=== PATIENT | male | born 1970 | race Caucasian/White ===

== ENCOUNTER 2017-08-13 09:55 | Emergency (ER) | payer BC, OTHER ==
[~2017-08-13] VITALS: Ht 165.1 cm; Wt 103.3 kg
[~2017-08-13 09:55] MED LIST: ASPI81TA28 PO; EPP3 IM; LOSA50TA6 PO; PRLSR20 PO
[2017-08-13 10:05] VITALS: TEMP 36.9; Ht 165.1 cm; Wt 103.3 kg
[2017-08-13] MEDS ORDERED: SODIUM CHLORIDE 0.9% 500ML 500 ML IV STA (10:49)
[2017-08-13] MEDS ORDERED: EPP3/2 IM (10:55)
[2017-08-13] MEDS ORDERED: OMEP20TA40 PO (10:55)
[2017-08-13] MEDS ORDERED: MULT-506 PO (10:56)
[2017-08-13] MEDS ORDERED: POTA99TA PO (10:56)
[2017-08-13] MEDS ORDERED: KRIL1000 PO (10:56)
[2017-08-13] MEDS ORDERED: HYDR12.56 PO (10:57)
[2017-08-13] MEDS ORDERED: OPTIRAY 320 IV PRN (11:00)
--- NOTE | 2017-08-13 11:14 | DIAGNOSTIC IMAGING REPORT ---
CHEST ONE VIEW PORTABLE CLINICAL HISTORY: 47 years-old Male presenting with Chest Pain. TECHNIQUE: Portable upright AP view of the chest was obtained. COMPARISON: 01/18/2016. FINDINGS: Top normal cardiac size. No focal opacity. No large effusion or pneumothorax. Osseous structures normal. Upper abdomen normal. IMPRESSION: 1. No acute cardiopulmonary disease. Electronically signed by: Valerio Ceja M.D. 08/13/2017 11:13 AM Dictated Date/Time: 08/13/2017 11:12 AM
[2017-08-13 11:29] LABS: BASO % 0.1 %; BASO ABS # 0.01 K/uL (0-0.2); EOS ABS # 0.08 K/uL (0-0.5); HEMATOCRIT 41.5 % (42-52); HEMOGLOBIN 15.3 g/dL (14.0-18.0); IG# 0.01 K/uL (0.00-0.02); LYMPH % 20.3 %; LYMPH ABS # 1.61 K/uL (1.2-3.4); MEAN CELL VOLUME 89.6 fL (80-100); MEAN CORPUSCULAR HGB CONC 36.9 g/dl (32-36); MEAN PLATELET VOLUME 8.9 fL (7.4-10.4); MONO % 6.3 %; NEUT % 72.2 %; NEUT ABS # 5.72 K/uL (1.4-6.5); PLATELET COUNT 243 K/uL (130-400); RED CELL DISTRIBUTION WIDTH CV 12.5 % (11.5-14.5); RED CELL DISTRIBUTION WIDTH SD 40.6 fL (36.4-46.3); WHITE BLOOD COUNT 7.93 K/uL (4.8-10.8)
[2017-08-13 11:46] LABS: BLOOD UREA NITROGEN 14 mg/dl (7-18); CALCIUM 9.4 mg/dl (8.5-10.1); CARBON DIOXIDE 29 mmol/L (21-32); CREATININE 1.32 mg/dl (0.60-1.40); GLUCOSE 99 mg/dl (70-99); POTASSIUM 3.4 mmol/L (3.5-5.1); SODIUM 135 mmol/L (136-145)
--- NOTE | 2017-08-13 12:21 | DIAGNOSTIC IMAGING REPORT ---
CT SCAN OF THE BRAIN WITHOUT IV CONTRAST CLINICAL HISTORY: Left arm numbness. COMPARISON STUDY: No priors. TECHNIQUE: Unenhanced axial CT scan of the brain is performed from the vertex to the skull base. A dose lowering technique was utilized adhering to the principles of ALARA. FINDINGS: Brain parenchyma: The brain parenchyma is normal in appearance. There is no hemorrhage, mass effect, or evidence of acute territorial ischemia by CT criteria. Ramesh-white matter is preserved. No extra-axial fluid collection is seen. Ventricles, sulci, cisterns: Normal in configuration. Intracranial vasculature: There is atherosclerotic calcification of the cavernous carotid arteries. Calvarium: Unremarkable. Sinuses and mastoids: The visualized paranasal sinuses are clear. The mastoid air cells are well pneumatized. Orbits: The bony orbits are grossly intact. IMPRESSION: No acute intracranial abnormality. Electronically signed by: George Flood M.D. 08/13/2017 12:20 PM Dictated Date/Time: 08/13/2017 12:18 PM
--- NOTE | 2017-08-13 12:29 | DIAGNOSTIC IMAGING REPORT ---
CHEST CTA for AORTIC DISSECTION CT DOSE: 2033.83 mGy.cm HISTORY: Left arm numbness and pain. Short of breath. Evaluate for dissection. TECHNIQUE: Multiaxial CT images of the chest were performed both before and after the intravenous administration of contrast to evaluate the aorta. Maximal intensity projection images were also obtained. A dose lowering technique was utilized adhering to the principles of ALARA. COMPARISON STUDY: None. FINDINGS: Normal caliber thoracic aorta with no evidence for dissection. The main pulmonary arteries are patent. The heart is normal in size. No pleural or pericardial effusions. The visualized liver, spleen, and adrenal glands are unremarkable. No mediastinal or hilar lymphadenopathy. Normal esophagus. No fractures within the visualized osseous structures. No pneumothorax. The central airways are patent. The lungs are clear. IMPRESSION: No evidence for an aortic dissection. Electronically signed by: Subhash Collier M.D. 08/13/2017 12:28 PM Dictated Date/Time: 08/13/2017 12:19 PM
[2017-08-13] MEDS ORDERED: PRED50TA PO (14:01)
[2017-08-13 14:08] VITALS: BP 134/93; PULSE 88; O2SAT 96
--- NOTE | 2017-08-13 14:41 | EMERGENCY ROOM VISIT NOTE ---
History Report prepared by Magali: Andre Mckeon Under the Supervision of: Dr. Rolf Hoover D.O. First contact with patient: 10:36 Chief Complaint: NEURO SYMPTOMS Stated Complaint: LEFT ARM NUMBESS, SOB AND NAUSEA History of Present Illness The patient is a 47 year old male who presents to the Emergency Room with complaints of improving left arm numbness beginning this morning. 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 He states that his arm currently feels "tingly and cold". The patient states that numbness is worse on the back side of his arm, and is present along the entire arm. He states that the numbness extends into his left neck and left jaw. He also complains of fatigue, low abdominal pain (intermittent for a month), shortness of breath with his numbness, and low back pain (for a few weeks). The patient states that he has been having problems with his hands falling asleep as well as tingling to his feet for several weeks. He states that his hands will fall asleep while holding things. He is not a smoker. Pt denies weakness, headache, change in vision, fevers, chest pain, nausea, vomiting, diarrhea, pain with urination, and melena. He has seen his PCP for his symptoms a few weeks ago. Source of History: patient Onset: This morning Position: arm (left) Quality: numbness Timing: other (improving) Associated Symptoms: + SOB (along with numbness), + abdominal pain (low, for about a month), + back pain (for a few weeks), + fatigue, No fevers, No headache, No chest pain, No nausea, No vomiting, No melena, No diarrhea, No urinary symptoms, No weakness Review of Systems See HPI for pertinent positives & negatives. A total of 10 systems reviewed and were otherwise negative. Past Medical & Surgical Medical Problems: (1) Acid reflux (2) chest pain (3) Hypertension Family History Cancer Diabetes mellitus Gallbladder disease Heart disease Hypertension Social History Smoking Status: Never Smoker Alcohol Use: occasionally Drug Use: none Marital Status: Housing Status: lives with family Occupation Status: employed Current/Historical Medications Scheduled Aspirin (Aspirin Ec), 81 MG PO DAILY Epinephrine (Epipen), 0.3 MG IM UD Hydrochlorothiazide (Hctz), Unknown Dose PO DAILY Krill Oil (Krill Oil), 1 CAP PO DAILY Losartan Potassium (Cozaar), 50 MG PO DAILY Multivitamin (Multivitamin), 1 TAB PO DAILY Omeprazole (Cvs Omeprazole), 20 MG PO DAILY Potassium (Potassium), 99 MG PO DAILY Prednisone (Prednisone), 50 MG PO DAILY Allergies Coded Allergies: BEE STING (Unverified Allergy, Unknown, HIVES, 08/13/17) Physical Exam Vital Signs Date Time Temp Pulse Resp B/P (MAP) Pulse Ox O2 Delivery O2 Flow Rate FiO2 08/13/17 14:08 88 19 134/93 96 08/13/17 12:36 87 23 160/103 97 Room Air 08/13/17 12:01 83 08/13/17 11:21 87 13 132/101 96 Room Air 08/13/17 10:05 36.9 98 18 152/97 99 Room Air Physical Exam GENERAL: Sitting up in bed, alert, well appearing, well nourished, no distress, non-toxic EYE EXAM: normal conjunctiva. PERRL and EOM's intact. OROPHARYNX: no exudate, no erythema, lips, buccal mucosa, and tongue normal and mucous membranes are moist NECK: supple, no nuchal rigidity, no adenopathy, non-tender LUNGS: Clear to auscultation. Normal chest wall mechanics HEART: no murmurs, S1 normal and S2 normal ABDOMEN: abdomen soft, non-tender, normo-active bowel sounds, no masses, no rebound or guarding. BACK: Back is symmetrical on inspection and there is no deformity, no midline tenderness, no CVA tenderness. SKIN: no rashes and no bruising UPPER EXTREMITIES: upper extremities are grossly normal. LOWER EXTREMITIES: No pitting edema. NEURO EXAM: Normal sensorium, cranial nerves II-XII intact, normal speech, no weakness of arms, no weakness of legs. No drift. Finger to nose intact. Gross sensation intact. Spurling's test reproduces mild tingling in left elbow. Medical Decision & Procedures ER Provider Diagnostic Interpretation: Radiology results as stated below per my review and the radiologist's interpretation: CHEST ONE VIEW PORTABLE FINDINGS: Top normal cardiac size. No focal opacity. No large effusion or pneumothorax. Osseous structures normal. Upper abdomen normal. IMPRESSION: 1. No acute cardiopulmonary disease. Electronically signed by: Valerio Ceja M.D. 08/13/2017 11:[address] SCAN OF THE BRAIN WITHOUT IV CONTRAST FINDINGS: Brain parenchyma: The brain parenchyma is normal in appearance. There is no hemorrhage, mass effect, or evidence of acute territorial ischemia by CT criteria. Ramesh-white matter is preserved. No extra-axial fluid collection is seen. Ventricles, sulci, cisterns: Normal in configuration. Intracranial vasculature: There is atherosclerotic calcification of the cavernous carotid arteries. Calvarium: Unremarkable. Sinuses and mastoids: The visualized paranasal sinuses are clear. The mastoid air cells are well pneumatized. Orbits: The bony orbits are grossly intact. IMPRESSION: No acute intracranial abnormality. Electronically signed by: George Flood M.D. 08/13/2017 12:20 PM CHEST CTA for AORTIC DISSECTION FINDINGS: Normal caliber thoracic aorta with no evidence for dissection. The main pulmonary arteries are patent. The heart is normal in size. No pleural or pericardial effusions. The visualized liver, spleen, and adrenal glands are unremarkable. No mediastinal or hilar lymphadenopathy. Normal esophagus. No fractures within the visualized osseous structures. No pneumothorax. The central airways are patent. The lungs are clear. IMPRESSION: No evidence for an aortic dissection. Electronically signed by: Subhash Collier M.D. 08/13/2017 12:28 PM Laboratory Results 08/13/17 11:10 Red Blood Count 4.63, Mean Corpuscular Volume 89.6, Mean Corpuscular Hemoglobin 33.0, Mean Corpuscular Hemoglobin Concent 36.9, Mean Platelet Volume 8.9, Neutrophils (%) (Auto) 72.2, Lymphocytes (%) (Auto) 20.3, Monocytes (%) (Auto) 6.3, Eosinophils (%) (Auto) 1.0, Basophils (%) (Auto) 0.1, Neutrophils # (Auto) 5.72, Lymphocytes # (Auto) 1.61, Monocytes # (Auto) 0.50, Eosinophils # (Auto) 0.08, Basophils # (Auto) 0.01 08/13/17 11:10 Test 08/13/17 11:10 08/13/17 13:19 White Blood Count 7.93 K/uL (4.8-10.8) Red Blood Count 4.63 M/uL (4.7-6.1) Hemoglobin 15.3 g/dL (14.0-18.0) Hematocrit 41.5 % (42-52) Mean Corpuscular Volume 89.6 fL (80-100) Mean Corpuscular Hemoglobin 33.0 pg (25-34) Mean Corpuscular Hemoglobin Concent 36.9 g/dl (32-36) Platelet Count 243 K/uL (130-400) Mean Platelet Volume 8.9 fL (7.4-10.4) Neutrophils (%) (Auto) 72.2 % Lymphocytes (%) (Auto) 20.3 % Monocytes (%) (Auto) 6.3 % Eosinophils (%) (Auto) 1.0 % Basophils (%) (Auto) 0.1 % Neutrophils # (Auto) 5.72 K/uL (1.4-6.5) Lymphocytes # (Auto) 1.61 K/uL (1.2-3.4) Monocytes # (Auto) 0.50 K/uL (0.11-0.59) Eosinophils # (Auto) 0.08 K/uL (0-0.5) Basophils # (Auto) 0.01 K/uL (0-0.2) RDW Standard Deviation 40.6 fL (36.4-46.3) RDW Coefficient of Variation 12.5 % (11.5-14.5) Immature Granulocyte % (Auto) 0.1 % Immature Granulocyte # (Auto) 0.01 K/uL (0.00-0.02) Anion Gap 5.0 mmol/L (3-11) Est Creatinine Clear Calc Drug Dose 74.9 ml/min Estimated GFR () 72.9 Estimated GFR (Non- 62.9 BUN/Creatinine Ratio 10.3 (10-20) Calcium Level 9.4 mg/dl (8.5-10.1) Total Creatine Kinase 95 U/L (39-308) Troponin I < 0.015 ng/ml (0-0.045) Laboratory results per my review. Medications Administered Medications (Trade) Dose Ordered Sig/Gary Route Start Time Stop Time Status Last Admin Dose Admin Sodium Chloride 500 ml @ 999 mls/hr Q31M STAT IV 08/13/17 10:49 08/13/17 11:19 DC 08/13/17 11:24 999 MLS/HR ECG Per My Interpretation Indication: other (neuro symptoms) Rate (beats per minute): 81 Rhythm: sinus rhythm Findings: left axis deviation, other (No PVCs. ) ED Course ED COURSE: Vital signs were reviewed and showed hypertension. The patients medical record was reviewed The above diagnostic studies were performed and reviewed. ED treatments and interventions as stated above. 1040: The patient was evaluated in room B8. A complete history and physical examination was performed. 1049: Ordered Sodium Chloride 500 ml @ 999 mls/hr IV. 1405: Upon reevaluation, the patient is resting comfortably. I discussed my findings with the patient and he understands and agrees with the treatment plan. Based on the patients age, coexisting illnesses, exam and lab findings the decision to treat as an outpatient was made. The patient remained stable while under my care. The patient appeared well at the time of discharge. 1415: Ordered Prednisone Tab 50 mg PO. Medical Decision Differential Diagnosis includes but is not limited to dehydration, stroke, anemia, hypoglycemia, hyponatremia, hypernatremia, urinary tract infection, pneumonia, bronchitis, sepsis, gastroenteritis, additional abdominal pathology, metabolic abnormalities and infections. Patient is a 47-year-old male who presents to ER for for left arm paresthesias. He has no weakness in the left upper extremity. He is completely otherwise neurologically intact. Does have some pain in the left side of the neck radiating into the trapezius. CT head was negative. Do not believe that this was an ischemic stroke. CT of the chest was performed to rule out dissection section due to family history and this was unremarkable. EKG was negative. Troponins were negative 2. CBC along with BMP was unremarkable. Updated patient and family at bedside. Discussed with neurology. Do question if this is truly a cervical disc as the symptoms are reproduced with extensive graphs of the upper extremities or overuse. Of note he did have a negative tennis Tinel sign on the left. Neurology recommends following up with PCP as an outpatient. No need for MRIs at this time. Discussed with Pt concerning signs and symptoms to watch out for. Pt was instructed to follow up with their PCP and discussed with the patient their option to return to the ED at anytime for persistent or worsening symptoms. The appropriate anticipatory guidance and out- patient management, including indications for return to the emergency department , were explained at length to the patient and understood. Medication Reconcilliation Current Medication List: was personally reviewed by me Blood Pressure Screening Patient's blood pressure: Elevated blood pressure Blood pressure disposition: Elevated BP felt to be situational Consults Time Called: 1307 Consulting Physician: Dr. Henry - Neurology Returned Call: [phone] I reviewed the patient's case with Dr. Henry. He recommends the patient follow up as an outpatient, and obtained outpatient MRI of C-spine if needed. Impression Primary Impression: Paresthesias Scribe Attestation The scribe's documentation has been prepared under my direction and personally reviewed by me in its entirety. I confirm that the note above accurately reflects all work, treatment, procedures, and medical decision making performed by me. Departure Information Dispostion Home / Self-Care Prescriptions Prednisone (PREDNISONE) 50 Mg Tab 50 MG PO DAILY for 4 Days, TAB Prov: Rolf Hoover, DO 08/13/17 Referrals Joyce Bartlett M.D. (PCP) Forms HOME CARE DOCUMENTATION FORM, IMPORTANT VISIT INFORMATION, WORK / SCHOOL INSTRUCTIONS Patient Instructions ED Paraesthesias, My [facility] Additional Instructions Please follow up with your primary care doctor with in the next 24 hours. Any worsening of your symptoms, please return to the ED immediately. This includes any fevers greater than 100.4, worsening pain, chest pain, shortness breath, persistent nausea, vomiting, unable to eat or drink, or any other concerning signs or symptoms from your standpoint. Any weakness, new numbness please return to ER immediately. Please take steroids as prescribed.
== END 2017-08-13 14:10 | disposition home or self-care (01) ==
LOC: C.EDB 09:56
DX: R20.2 Paresthesia of skin (principal); K21.9 Gastro-esophageal reflux disease without esophagitis; I10 Essential (primary) hypertension; Z79.82 Long term (current) use of aspirin; Z79.899 Other long term (current) drug therapy; Z91.030 Bee allergy status